=== PATIENT | male | born 1945 | race Caucasian/White ===

== ENCOUNTER 2024-04-22 14:41 | Inpatient (IN) | payer MEDICARE, BC ==
--- NOTE | 2024-04-22 15:04 | ED ---
General Adult HPI - General Chief complaint: Arrhythmia/Palpitations Stated complaint: abn labs Time Seen by Provider: 04/22/24 14:45 Source: patient, RN notes reviewed, old records reviewed Mode of arrival: EMS Limitations: no limitations - History of Present Illness Initial comments: This is a 79-year-old male who presents to the emergency department stating that he was at his doctor's office and they told that the EKG that he did showed him to be having a heart attack so he came to the emergency department. Patient states he has no chest pain palpitations difficulty breathing shortness of breath. According to EMS his heart rate will get up as fast as 170. Patient has a history of atrial fibrillation and is on Eliquis. Patient denies any back pain. Patient has any fever chills or cough. Patient states currently has no symptoms whatsoever. Patient denies any abdominal pain patient has any nausea vomiting or diarrhea. - Related Data Home Medications Medication Instructions Recorded Confirmed Apixaban [Eliquis] 5 mg PO BID 04/22/24 04/22/24 Aspirin EC [Ecotrin Low Dose] 81 mg PO DAILY 04/22/24 04/22/24 Carboxymethylcellulose Sodium 1 drop BOTH EYES DAILY 04/22/24 04/22/24 [Refresh Tears] Famotidine [Pepcid] 40 mg PO DAILY 04/22/24 04/22/24 Metoprolol Tartrate [Lopressor] 25 mg PO DAILY PRN 04/22/24 04/22/24 Pantoprazole [Protonix] 40 mg PO DAILY 04/22/24 04/22/24 Pravastatin Sodium [Pravachol] 40 mg PO Q48H 04/22/24 04/22/24 Pregabalin [Lyrica] 150 mg PO BID 04/22/24 04/22/24 Sertraline [Zoloft] 150 mg PO DAILY 04/22/24 04/22/24 buPROPion XL [Wellbutrin XL] 150 mg PO DAILY 04/22/24 04/22/24 Allergies Allergy/AdvReac Type Severity Reaction Status Date / Time No Known Allergies Allergy Verified 04/22/24 15:33 Review of Systems ROS Statement: Those systems with pertinent positive or pertinent negative responses have been documented in the HPI. ROS Other: All systems not noted in ROS Statement are negative. Past Medical History Past Medical History: Atrial Fibrillation, Diabetes Mellitus, Hyperlipidemia Additional Past Medical History / Comment(s): neuropathy, Additional Past Surgical History / Comment(s): left knee, Past Psychological History: PTSD Smoking Status: Current every day smoker Past Alcohol Use History: Heavy, Occasional Past Drug Use History: None Reported General Exam - General Exam Comments Initial Comments: GENERAL: Patient is well-developed and well-nourished. Patient is nontoxic and well- hydrated and is in no acute distress. ENT: Neck is soft and supple. No significant lymphadenopathy is noted. Oropharynx is clear. Moist mucous membranes. Neck has full range of motion without eliciting any pain. EYES: The sclera were anicteric and conjunctiva were pink and moist. Extraocular movements were intact and pupils were equal round and reactive to light. Eyelid s were unremarkable. PULMONARY: Unlabored respirations. Good breath sounds bilaterally. No audible rales rhonchi or wheezing was noted. CARDIOVASCULAR: There is a regular rate and rhythm without any murmurs gallops or rubs. Patient's heart rate currently is in the 90s but occasionally he does jump up to the 130 and 40 range ABDOMEN: Soft and nontender with normal bowel sounds. SKIN: Skin is clear with no lesions or rashes and otherwise unremarkable. NEUROLOGIC: Patient is alert and oriented x3. Cranial nerves II through XII are grossly intact. Motor and sensory are also intact. Normal speech, volume and content. Symmetrical smile. MUSCULOSKELETAL: Normal extremities with adequate strength and full range of motion. There is a cast on the right leg LYMPHATICS: No significant lymphadenopathy is noted PSYCHIATRIC: Normal psychiatric evaluation. Limitations: no limitations Course Vital Signs 04/22/24 04/22/24 04/22/24 14:43 14:55 15:33 Temperature 98.3 F Pulse Rate 168 H 91 Pulse Rate [ 96 Auditor/Quality ] Respiratory 18 18 Rate Blood Pressure 111/88 130/79 O2 Sat by Pulse 97 96 Oximetry 04/22/24 16:40 Temperature Pulse Rate 82 Pulse Rate [ Auditor/Quality ] Respiratory 17 Rate Blood Pressure 128/73 O2 Sat by Pulse 98 Oximetry Medical Decision Making - Medical Decision Making EKG is interpreted by myself. EKG shows atrial fibrillation with rapid ventricular response at a rate of 127 bpm QRS is 94 QT interval is 282 QTc is 357. Patient's EKG shows A-fib at the beginning of the EKG and normal sinus rhythm at the end A repeat EKG was done the EKG was interpreted by myself and shows a normal sinus rhythm at a rate of 83 bpm SC 180 QRS is 85 QT interval 354 QTc is 394. Patient EKG shows no ST segment elevation or depression. Was pt. sent in by a medical professional or institution (ELVIN Pritchett, PRODUCTION SUPPLY EQUIPMENT TENDER, urgent care, hospital, or correction...) When possible be specific @ -Patient was sent in by the primary medical care doctor Did you speak to anyone other than the patient for history (EMS, parent, family, police, friend...)? What history was obtained from this source @ -No Did you review nursing and triage notes (agree or disagree)? Why? @ -I reviewed and agree with nursing and triage notes Were old charts reviewed (outside hosp., previous admission, EMS record, old EKG, old radiological studies, urgent care reports/EKG's, correction records)? Report findings @ -No old charts were reviewed Differential Diagnosis? @ -Differential Palpitations Ventricular arrhythmias, atrial arrhythmias, myocardial infarction, anemia, thyrotoxicosis, electrolyte imbalance, hypokalemia, pulmonary embolism, pulmonary disease, drugs, alcohol, anxiety, stress.... This is not meant to be an all-inclusive list. EKG interpreted by me (3pts min.). @ -As above X-rays interpreted by me (1pt min.). @ -Chest x-ray showed no acute normality CT interpreted by me (1pt min.). @ -CT of the chest shows no pulmonary embolism U/S interpreted by me (1pt. min.). @ -None done What testing was considered but not performed or refused? (CT, X-rays, U/S, labs)? Why? @ -None What meds were considered but not given or refused? Why? @ -None Did you discuss the management of the patient with other professionals (professionals i.e. ELVIN Pritchett, PRODUCTION SUPPLY EQUIPMENT TENDER, lab, RT, psych nurse, child welfare social worker, mechanical shovel operator, teacher, coastal/harbor defense officer, director case)? Give summary @ [facility] Was smoking cessation discussed for >3mins.? @ -No Was critical care preformed (if so, how long)? @ -No Were there social determinants of health that impacted care today? How? (Homelessness, low income, unemployed, alcoholism, drug addiction, transportat ion, low edu. Level, literacy, decrease access to med. care, [facility], rehab)? @ -No Was there de-escalation of care discussed even if they declined (Discuss DNR or withdrawal of care, Hospice)? DNR status @ -No What co-morbidities impacted this encounter? (DM, HTN, Smoking, COPD, CAD, Cancer, CVA, ARF, Chemo, Hep., AIDS, mental health diagnosis, sleep apnea, morbid obesity)? @ -None Was patient admitted / discharged? Hospital course, mention meds given and route, prescriptions, significant lab abnormalities, going to OR and other pertinent info. @ -Patient had A-fib with rapid ventricular response multiple times during the ER visit but most the time he was in sinus rhythm. Patient did not have any chest pain or difficulty breathing while in the emergency department. I spoke with [facility] hospitalist they agreed admit the patient admit the patient wrote admitting orders Undiagnosed new problem with uncertain prognosis? @ -No Drug Therapy requiring intensive monitoring for toxicity (Heparin, Nitro, Insulin, Cardizem)? @ -No Were any procedures done? @ -No Diagnosis/symptom? @ -Atrial fibrillation with rapid ventricular response Acute, or Chronic, or Acute on Chronic? @ -Acute Uncomplicated (without systemic symptoms) or Complicated (systemic symptoms)? @ -complicated Side effects of treatment? @ -No Exacerbation, Progression, or Severe Exacerbation? @ -No Poses a threat to life or bodily function? How? (Chest pain, [place], [place], pneumonia, PE, COPD, DKA, ARF, appy, cholecystitis, CVA, Diverticulitis, Homicidal, Suicidal, threat to staff... and all critical care pts) @ -No - Lab Data Result diagrams: 04/22/24 15:03 04/22/24 15:03 Lab Results 04/22/24 04/22/24 04/22/24 Range/Units 15:03 15:03 15:03 WBC 10.0 (3.8-10.6) k/uL RBC 4.26 L (4.30-5.90) m/uL Hgb 12.4 L (13.0-17.5) gm/dL Hct 37.5 L (39.0-53.0) % MCV 88.2 (80.0-100.0) fL MCH 29.1 (25.0-35.0) pg MCHC 33.0 (31.0-37.0) g/dL RDW 15.4 (11.5-15.5) % Plt Count 329 (150-450) k/uL MPV 8.1 Neutrophils % 68 % Lymphocytes % 18 % Monocytes % 9 % Eosinophils % 2 % Basophils % 1 % Neutrophils # 6.8 (1.3-7.7) k/uL Lymphocytes # 1.8 (1.0-4.8) k/uL Monocytes # 0.9 (0-1.0) k/uL Eosinophils # 0.2 (0-0.7) k/uL Basophils # 0.1 (0-0.2) k/uL PT 10.4 (10.0-12.5) sec INR 0.9 (<1.2) APTT 27.0 (22.0-30.0) sec D-Dimer 1.51 H (<0.60) mg/L FEU Sodium 136 L (137-145) mmol/L Potassium 4.1 (3.5-5.1) mmol/L Chloride 104 (98-107) mmol/L Carbon Dioxide 25 (22-30) mmol/L Anion Gap 7 mmol/L BUN 11 (9-20) mg/dL Creatinine 0.82 (0.66-1.25) mg/dL Est GFR (CKD-EPI)AfAm >90 (>60 ml/min/1.73 sqM) Est GFR (CKD-EPI)NonAf 84 (>60 ml/min/1.73 sqM) Glucose 121 H (74-99) mg/dL Calcium 8.9 (8.4-10.2) mg/dL Magnesium 2.1 (1.6-2.3) mg/dL Total Bilirubin 0.3 (0.2-1.3) mg/dL AST 23 (17-59) U/L ALT 20 (4-49) U/L Alkaline Phosphatase 140 H (38-126) U/L Troponin I (0.000-0.034) ng/mL Total Protein 6.2 L (6.3-8.2) g/dL Albumin 3.2 L (3.5-5.0) g/dL 04/22/24 Range/Units 15:03 WBC (3.8-10.6) k/uL RBC (4.30-5.90) m/uL Hgb (13.0-17.5) gm/dL Hct (39.0-53.0) % MCV (80.0-100.0) fL MCH (25.0-35.0) pg MCHC (31.0-37.0) g/dL RDW (11.5-15.5) % Plt Count (150-450) k/uL MPV Neutrophils % % Lymphocytes % % Monocytes % % Eosinophils % % Basophils % % Neutrophils # (1.3-7.7) k/uL Lymphocytes # (1.0-4.8) k/uL Monocytes # (0-1.0) k/uL Eosinophils # (0-0.7) k/uL Basophils # (0-0.2) k/uL PT (10.0-12.5) sec INR (<1.2) APTT (22.0-30.0) sec D-Dimer (<0.60) mg/L FEU Sodium (137-145) mmol/L Potassium (3.5-5.1) mmol/L Chloride (98-107) mmol/L Carbon Dioxide (22-30) mmol/L Anion Gap mmol/L BUN (9-20) mg/dL Creatinine (0.66-1.25) mg/dL Est GFR (CKD-EPI)AfAm (>60 ml/min/1.73 sqM) Est GFR (CKD-EPI)NonAf (>60 ml/min/1.73 sqM) Glucose (74-99) mg/dL Calcium (8.4-10.2) mg/dL Magnesium (1.6-2.3) mg/dL Total Bilirubin (0.2-1.3) mg/dL AST (17-59) U/L ALT (4-49) U/L Alkaline Phosphatase (38-126) U/L Troponin I <0.012 (0.000-0.034) ng/mL Total Protein (6.3-8.2) g/dL Albumin (3.5-5.0) g/dL Disposition Clinical Impression: Atrial fibrillation with rapid ventricular response Disposition: ADMITTED IP TO THIS HOSP Referrals: Ha Grimaldo MD [Primary Care Provider] - 1-2 days Time of Disposition: 18:00
[2024-04-22 15:30] LABS: INR 0.9 (<1.2); Prothrombin Time 10.4 sec (10.0-12.5)
--- NOTE | 2024-04-22 15:40 | XR ---
EXAMINATION TYPE: XR chest 2V DATE OF EXAM: 04/22/2024 3:31 PM CLINICAL INDICATION: Male, 79 years old with history of dysrhythmia; COMPARISON: None TECHNIQUE: XR chest 2V Frontal view of the chest. FINDINGS: Lungs/Pleura: There is no evidence of pleural effusion, focal consolidation, or pneumothorax. Pulmonary vascularity: Pulmonary vascular congestion. Heart/mediastinum: Cardiomediastinal silhouette is enlarged. Atherosclerotic calcifications are seen in the aorta. Musculoskeletal: No acute osseous pathology. Other findings: None Lines/Tubes: IMPRESSION: Cardiomegaly and mild pulmonary vascular congestion. Correlate with BNP for congestive heart failure.
[2024-04-22 15:46] LABS: ALT 20 U/L (4-49); AST 23 U/L (17-59); African American GFR (CKD) >90 (>60 ml/min/1.73 sqM); Albumin 3.2 g/dL (3.5-5.0); Alkaline Phosphatase 140 U/L (38-126); Anion Gap 7 mmol/L; Blood Urea Nitrogen 11 mg/dL (9-20); Calcium 8.9 mg/dL (8.4-10.2); Carbon Dioxide 25 mmol/L (22-30); Chloride 104 mmol/L (98-107); Glucose 121 mg/dL (74-99); Magnesium 2.1 mg/dL (1.6-2.3); Non-African American GFR(CKD) 84 (>60 ml/min/1.73 sqM); Potassium 4.1 mmol/L (3.5-5.1); Sodium 136 mmol/L (137-145); Total Bilirubin 0.3 mg/dL (0.2-1.3); Total Protein 6.2 g/dL (6.3-8.2)
[2024-04-22 15:47] LABS: Basophils # (A) 0.1 k/uL (0-0.2); Basophils % (A) 1 %; Eosinophils # (A) 0.2 k/uL (0-0.7); Eosinophils % (A) 2 %; HCT 37.5 % (39.0-53.0); HGB 12.4 gm/dL (13.0-17.5); Lymphocytes # (A) 1.8 k/uL (1.0-4.8); Lymphocytes % (A) 18 %; MCH 29.1 pg (25.0-35.0); MCV 88.2 fL (80.0-100.0); Mean Platelet Volume 8.1; Monocytes # (A) 0.9 k/uL (0-1.0); Monocytes % (A) 9 %; Neutrophils # (A) 6.8 k/uL (1.3-7.7); Neutrophils % (A) 68 %; Platelet Count 329 k/uL (150-450); RBC 4.26 m/uL (4.30-5.90); RDW 15.4 % (11.5-15.5)
--- NOTE | 2024-04-22 17:04 | CT ---
EXAMINATION TYPE: CT chest angio for PE CT DLP: 522.1 mGycm, Automated exposure control for dose reduction was used. DATE OF EXAM: 04/22/2024 4:40 PM COMPARISON: Chest radiograph from same day. . CLINICAL INDICATION: Male, 79 years old with history of Tachycardia; Tachycardia. R/O PE. TECHNIQUE/CONTRAST: CTA scan of the thorax is performed with IV Contrast, patient injected with 100 ml mL of Isovue 370, MIP images are created and reviewed these are created on a separate workstation.. FINDINGS: Pulmonary Artery: There is no evidence for a filling defect within the pulmonary vasculature to sugge st acute pulmonary embolism. The pulmonary artery is of normal size. Lungs/Pleura: No evidence of focal consolidation, pleural effusion or pneumothorax. Airway: Large airways are patent. Heart: Heart is within normal limits for size. Atherosclerosis of the arterial vasculature. Vasculature: No evidence of aortic aneurysm. Mediastinum: No gross evidence of adenopathy. Musculoskeletal: No acute osseous abnormalities Soft Tissues/lymph nodes: Unremarkable. Lower neck: No significant findings. Upper Abdomen: Left renal simple appearing cyst. Simple appearing liver cyst. IMPRESSION: 1. No evidence of pulmonary embolism. 2. Compression deformity/cortical disruption of the anterior aspect of T8 correlate with back pain fu rther workup for T8 vertebral body fracture recommended. 3. Aortic valve and coronary artery calcifications.
[2024-04-22] MEDS ORDERED: NITROGLYCERIN SL TABS 0.4 MG TAB SUBLINGUAL PRN (18:00)
[2024-04-22] MEDS ORDERED: METOPROLOL TARTRATE 25 MG TAB PO PRN (18:03)
[2024-04-22] MEDS: PREGABALIN 75 MG CAP PO SCH (21:17)
[2024-04-22] MEDS: APIXABAN 5 MG TAB PO SCH (21:17)
[2024-04-23] MEDS: PANTOPRAZOLE 40 MG TABLET PO SCH (05:47)
[2024-04-23 08:51] LABS: Chol/HDL Ratio 4.33 Ratio; LDL Cholesterol,Calculated 94.6 mg/dL (0.0-131.0)
[2024-04-23] MEDS ORDERED: ASPIRIN 325 MG TAB PO SCH (09:00)
--- NOTE | 2024-04-23 09:35 | P.CRDCN ---
History of Present Illness History of present illness: HISTORY OF PRESENT ILLNESS: This is a 79-year-old male with a past medical history significant for paroxysmal atrial fibrillation, hyperlipidemia, nicotine dependence, and GERD. Patient follows at the [facility]. We have been asked to see the patient in consultation for atrial fibrillation. Patient examined at the bedside. Patient was at a doctor's appointment yesterday when an EKG was completed revealing tachycardia. The patient was directed to come to the emergency room. The patient does report having some palpitations. He denies any chest pain or pressure. He denies any shortness of breath. The patient does have a history of atrial fibrillation. His EKG on admission appears to be atrial tachycardia. He has since converted to sinus mechanism and is maintaining sinus mechanism this morning. The patient is prescribed metoprolol but apparently he is only taking this on an as-needed basis. DIAGNOSTICS: - EKG reveals atrial tachycardia versus atrial fibrillation. Repeat EKG reveals sinus mechanism. - Chest xray cardiomegaly and mild pulmonary vascular congestion - Laboratory data: WBC 10.0. Hemoglobin 12.4. Platelet count 329. Sodium 136. Potassium 4.1. BUN 11. Creatinine 0.82. Magnesium 2.1. Troponin negative x 3. - Current home cardiac medications include Eliquis 5 mg twice a day, aspirin 81 mg daily, metoprolol tartrate 25 mg daily as needed, and pravastatin 40 mg every 48 hours REVIEW OF SYSTEMS: At the time of my exam: CONSTITUTIONAL: Denies fever or chills. HEENT: Denies blurred vision, vision changes, or eye pain. Denies hemoptysis CARDIOVASCULAR: Denies chest pain. Denies orthopnea. Denies PND. Denies palpitations RESPIRATORY: Denies shortness of breath. GASTROINTESTINAL: Denies abdominal pain. Denies nausea or vomiting. HEMATOLOGIC: Denies bleeding disorders. GENITOURINARY: Denies any blood in urine. SKIN: Denies pruitis. Denies rash. PHYSICAL EXAM: VITAL SIGNS: Reviewed. GENERAL: Well-developed in no acute distress. HEENT: Head is normocephalic. Pupils are equal, round. Sclerae anicteric. Mucous membranes of the mouth are moist. Neck supple. No JVD or thyromegaly LUNGS: Respirations even and unlabored. Lungs essentially clear to auscultation bilaterally. HEART: Regular rate and rhythm. S1 and S2 heard. ABDOMEN: Soft. Nondistended. Nontender. EXTREMITIES: Normal range of motion. No clubbing or cyanosis. Peripheral pu lses intact. No lower extremity edema NEUROLOGIC: Awake and alert. Oriented x 3. ASSESSMENT: Paroxysmal atrial fibrillation with RVR Atrial tachycardia Hyperlipidemia Nicotine dependence GERD PLAN: Obtain 2D echo to assess cardiac structure and function Patient instructed to take his metoprolol on a daily basis instead of PRN Resume home cardiac medications Patient may be discharged home today pending echo results and follow-up with his primary physician at the [facility] Nurse practitioner note has been reviewed by physician. Signing provider agrees with the documented findings, assessment, and plan of care documented by DIAGNOSTICS SALES DEVELOPER as a scribe. Past Medical History Past Medical History: Atrial Fibrillation, Diabetes Mellitus, Hyperlipidemia Additional Past Medical History / Comment(s): neuropathy, History of Any Multi-Drug Resistant Organisms: None Reported Additional Past Surgical History / Comment(s): left knee, ears Past Anesthesia/Blood Transfusion Reactions: No Reported Reaction Past Psychological History: PTSD Smoking Status: Current every day smoker Past Alcohol Use History: Heavy, Occasional Additional Past Alcohol Use History / Comment(s): 3 cigars a day, 4-5 beers and 4-5 shots every other day Past Drug Use History: None Reported Medications and Allergies Home Medications Medication Instructions Recorded Confirmed Type Apixaban [Eliquis] 5 mg PO BID 04/22/24 04/22/24 History Aspirin EC [Ecotrin Low Dose] 81 mg PO DAILY 04/22/24 04/22/24 History Carboxymethylcellulose Sodium 1 drop BOTH EYES DAILY 04/22/24 04/22/24 History [Refresh Tears] Famotidine [Pepcid] 40 mg PO DAILY 04/22/24 04/22/24 History Metoprolol Tartrate [Lopressor] 25 mg PO DAILY PRN 04/22/24 04/22/24 History Pantoprazole [Protonix] 40 mg PO DAILY 04/22/24 04/22/24 History Pravastatin Sodium [Pravachol] 40 mg PO Q48H 04/22/24 04/22/24 History Pregabalin [Lyrica] 150 mg PO BID 04/22/24 04/22/24 History Sertraline [Zoloft] 150 mg PO DAILY 04/22/24 04/22/24 History buPROPion XL [Wellbutrin XL] 150 mg PO DAILY 04/22/24 04/22/24 History Allergies Allergy/AdvReac Type Severity Reaction Status Date / Time No Known Allergies Allergy Verified 04/22/24 15:33 Physical Exam Vitals: Vital Signs Temp Pulse Pulse Resp BP BP Pulse Ox 04/23/24 02:00 98.1 F 66 18 116/74 95 04/23/24 00:32 69 04/22/24 22:50 97.7 F 71 16 114/56 93 L 04/22/24 22:44 97.7 F 69 16 114/56 94 L 04/22/24 20:00 97.9 F 69 18 128/71 95 04/22/24 19:46 97.7 F 73 14 119/58 96 04/22/24 18:05 69 18 112/61 96 04/22/24 16:40 82 17 128/73 98 04/22/24 15:33 91 18 130/79 96 04/22/24 14:55 96 04/22/24 14:43 98.3 F 168 H 18 111/88 97 Intake and Output 04/22/24 04/23/24 04/23/24 22:59 06:59 14:59 Intake Total 0 Output Total 400 Balance -400 0 Intake: Oral 0 Output: Urine 400 Other: # Voids 1 1 Weight 99.79 kg Results 04/22/24 15:03 04/22/24 15:03 Cardiac Enzymes 04/22/24 04/22/24 04/22/24 Range/Units 15:03 15:03 18:47 AST 23 (17-59) U/L Troponin I <0.012 <0.012 (0.000-0.034) ng/mL 04/22/24 Range/Units 21:38 AST (17-59) U/L Troponin I <0.012 (0.000-0.034) ng/mL Coagulation 04/22/24 Range/Units 15:03 PT 10.4 (10.0-12.5) sec APTT 27.0 (22.0-30.0) sec Lipids 04/22/24 Range/Units 15:03 Triglycerides 169.00 H (0.00-149.00) mg/dL Cholesterol 167.00 (0.00-200.00) mg/dL HDL Cholesterol 38.60 L (40.00-60.00) mg/dL Cholesterol/HDL Ratio 4.33 Ratio CBC 04/22/24 Range/Units 15:03 WBC 10.0 (3.8-10.6) k/uL RBC 4.26 L (4.30-5.90) m/uL Hgb 12.4 L (13.0-17.5) gm/dL Hct 37.5 L (39.0-53.0) % Plt Count 329 (150-450) k/uL Comprehensive Metabolic Panel 04/22/24 Range/Units 15:03 Sodium 136 L (137-145) mmol/L Potassium 4.1 (3.5-5.1) mmol/L Chloride 104 (98-107) mmol/L Carbon Dioxide 25 (22-30) mmol/L BUN 11 (9-20) mg/dL Creatinine 0.82 (0.66-1.25) mg/dL Glucose 121 H (74-99) mg/dL Calcium 8.9 (8.4-10.2) mg/dL AST 23 (17-59) U/L ALT 20 (4-49) U/L Alkaline Phosphatase 140 H (38-126) U/L Total Protein 6.2 L (6.3-8.2) g/dL Albumin 3.2 L (3.5-5.0) g/dL Current Medications Generic Name Dose Route Start Last Admin Trade Name Freq PRN Reason Stop Dose Admin Apixaban 5 mg 04/22/24 21:00 04/22/24 21:17 Apixaban 5 Mg Tab PO 5 mg BID [facility] Administration Protocol Artificial Tears 1 drops 04/23/24 09:00 Artificial Tears-Hypromellose Drops 15 Ml Btl BOTH EYES DAILY [facility] Aspirin 81 mg 04/23/24 09:00 Aspirin 81 Mg PO DAILY [facility] Bupropion HCl 150 mg 04/23/24 09:00 Bupropion Xl 150 Mg Tab.Er.24h PO DAILY [facility] Famotidine 40 mg 04/23/24 09:00 Famotidine 20 Mg Tab PO DAILY [facility] Metoprolol Succinate 25 mg 04/23/24 09:00 Metoprolol Succinate (Er) 25 Mg Tab.Er.24h PO DAILY [facility] Nitroglycerin 0.4 mg 04/22/24 18:00 Nitroglycerin Sl Tabs 0.4 Mg Tab SUBLINGUAL Q5M PRN Chest Pain Pantoprazole Sodium 40 mg 04/23/24 07:30 04/23/24 05:47 Pantoprazole 40 Mg Tablet PO Not Given AC-BRKFST [facility] Pravastatin Sodium 40 mg 04/23/24 09:00 Pravastatin Sodium 40 Mg Tab PO Q48H [facility] Pregabalin 150 mg 04/22/24 21:00 04/22/24 21:17 Pregabalin 75 Mg Cap PO 150 mg BID [facility] Administration Sertraline HCl 150 mg 04/23/24 09:00 Sertraline 50 Mg Tab PO DAILY [facility] Intake and Output 04/22/24 04/23/24 04/23/24 22:59 06:59 14:59 Intake Total 0 Output Total 400 Balance -400 0 Intake: Oral 0 Output: Urine 400 Other: # Voids 1 1 Weight 99.79 kg 04/22/24 15:03 04/22/24 15:03
[2024-04-23] MEDS: SERTRALINE 50 MG TAB PO SCH (10:25)
[2024-04-23] MEDS: ASPIRIN 81 MG PO SCH (10:25)
[2024-04-23] MEDS: buPROPion XL 150 MG TAB.ER.24H PO SCH (10:26)
[2024-04-23] MEDS: FAMOTIDINE 20 MG TAB PO SCH (10:26)
[2024-04-23] MEDS: METOPROLOL SUCCINATE (ER) 25 MG TAB.ER.24H PO SCH (10:26)
[2024-04-23] MEDS: ARTIFICIAL TEARS-HYPROMELLOSE DROPS 15 ML BTL BOTH EYES SCH (10:38)
[2024-04-23] MEDS: PRAVASTATIN SODIUM 40 MG TAB PO SCH (10:38)
--- NOTE | 2024-04-23 12:11 | P.HPIM ---
History of Present Illness H&P Date: 04/23/24 Patient is a 79-year-old male with a past medical history significant for paroxysmal atrial fibrillation maintained on Eliquis, hyperlipidemia, and GERD who presented to the emergency department after the [facility] sent him here for EKG changes showing [place]. He endorsed palpitations at the time. He had no complaints of chest pain, shortness of breath, abdominal pain, diaphoresis, fever, chills, nausea, vomiting at the time. He continues to deny chest pain, shortness of breath, nausea, vomiting, palpitations. Initial EKG at [facility] showed atrial fibrillation with rapid ventricular rate versus atrial tachycardia. Subsequent EKG showed normal sinus rhythm. Chest x-ray showed pulmonary vascular congestion and cardiomegaly. CT angio showed no evidence of pulmonary embolism. Troponins x 3 were negative. D-dimer 1.51. Afebrile, normotensive, tachycardicsince resolved. ED documentation reviewed. Review of systems: Pertinent positives and negatives as discussed in HPI, a complete review of systems was performed and all other systems are negative. Social history: Tobacco: current every day Alcohol: current every day Recreational drugs: denies Travel: denies Occupation: retired Physical examination: Vital signs reviewed General: No acute distress Head: Atraumatic, normocephalic, symmetric Eyes: EOMI, no lid lag, anicteric sclera, pupils equal round reactive to light ENT: Nose and ears atraumatic Neck: No cervical lymphadenopathy, trachea midline, supple Mouth: Mucus membranes moist Cardiovascular: S1S2 present, regular rate and rhythm, no murmurs/rubs/gallops Lungs: CTA bilateral, no rhonchi, no rales, no accessory muscle use Abdominal: Soft, nontender to palpation, no guarding Ext: Right lower leg cast present status post fracture from intoxicated fall, no gross muscle atrophy, no edema Neuro: CN II-XI grossly intact, no gross focal neuro deficits Psych: Alert, oriented, appropriate affect and mood Assessment/Plan: - Paroxysmal atrial fibrillation with rapid ventricular rate - Atrial tachycardia Now in normal sinus rhythm Continue Eliquis 2D echo pending Metoprolol daily instead of PRN per cardiology - Hyperlipidemia Continue Pravachol - Neuropathy Continue Lyrica - Depression Continue Zoloft Continue Wellbutrin DVT prophylaxis: Eliquis The patient is admitted with an anticipated less than 2 midnight stay for evaluation of A-fib. Discussed with: Patient Anticipated discharge place: Home Dr. Tera MD I have performed a history and physical examination and medical decision making of this patient, discussed the same with the the resident, and agree with the assessment and plan as written. I performed brief physical exam. Past Medical History Past Medical History: Atrial Fibrillation, Diabetes Mellitus, Hyperlipidemia Additional Past Medical History / Comment(s): neuropathy, History of Any Multi-Drug Resistant Organisms: None Reported Additional Past Surgical History / Comment(s): left knee, ears Past Anesthesia/Blood Transfusion Reactions: No Reported Reaction Past Psychological History: PTSD Smoking Status: Current every day smoker Past Alcohol Use History: Heavy, Occasional Additional Past Alcohol Use History / Comment(s): 3 cigars a day, 4-5 beers and 4-5 shots every other day Past Drug Use History: None Reported Medications and Allergies Home Medications Medication Instructions Recorded Confirmed Type Apixaban [Eliquis] 5 mg PO BID 04/22/24 04/22/24 History Carboxymethylcellulose Sodium 1 drop BOTH EYES DAILY 04/22/24 04/22/24 History [Refresh Tears] Famotidine [Pepcid] 40 mg PO DAILY 04/22/24 04/22/24 History Pantoprazole [Protonix] 40 mg PO DAILY 04/22/24 04/22/24 History Pravastatin Sodium [Pravachol] 40 mg PO Q48H 04/22/24 04/22/24 History Pregabalin [Lyrica] 150 mg PO BID 04/22/24 04/22/24 History Sertraline [Zoloft] 150 mg PO DAILY 04/22/24 04/22/24 History buPROPion XL [Wellbutrin XL] 150 mg PO DAILY 04/22/24 04/22/24 History Metoprolol Succinate (ER) [Toprol 25 mg PO DAILY #30 tab 04/23/24 Rx XL] Allergies Allergy/AdvReac Type Severity Reaction Status Date / Time No Known Allergies Allergy Verified 04/22/24 15:33 Physical Exam Vitals: Vital Signs Temp Pulse Pulse Resp BP BP Pulse Ox 04/23/24 02:00 98.1 F 66 18 116/74 95 04/23/24 00:32 69 04/22/24 22:50 97.7 F 71 16 114/56 93 L 04/22/24 22:44 97.7 F 69 16 114/56 94 L 04/22/24 20:00 97.9 F 69 18 128/71 95 04/22/24 19:46 97.7 F 73 14 119/58 96 04/22/24 18:05 69 18 112/61 96 04/22/24 16:40 82 17 128/73 98 04/22/24 15:33 91 18 130/79 96 04/22/24 14:55 96 04/22/24 14:43 98.3 F 168 H 18 111/88 97 Intake and Output 04/22/24 04/23/24 04/23/24 22:59 06:59 14:59 Intake Total 0 Output Total 400 Balance -400 0 Intake: Oral 0 Output: Urine 400 Other: # Voids 1 1 Weight 99.79 kg Results CBC & Chem 7: 04/22/24 15:03 04/22/24 15:03 Labs: Abnormal Lab Results - Last 24 Hours (Table) 04/22/24 04/22/24 04/22/24 Range/Units 15:03 15:03 15:03 RBC 4.26 L (4.30-5.90) m/uL Hgb 12.4 L (13.0-17.5) gm/dL Hct 37.5 L (39.0-53.0) % D-Dimer 1.51 H (<0.60) mg/L FEU Sodium 136 L (137-145) mmol/L Glucose 121 H (74-99) mg/dL Alkaline Phosphatase 140 H (38-126) U/L Total Protein 6.2 L (6.3-8.2) g/dL Albumin 3.2 L (3.5-5.0) g/dL Thrombosis Risk Factor Assmnt - Choose All That Apply Any of the Below Risk Factors Present?: Yes Each Factor Represents 1 point: Obesity (BMI >25) Other Risk Factors: Yes Each Risk Factor Represents 3 Points: Age 75 years or older Other congenital or acquired thrombophilia - If yes, enter type in comment: No Thrombosis Risk Factor Assessment Total Risk Factor Score: 4 Thrombosis Risk Factor Assessment Level: Moderate Risk
[2024-04-23] MEDS: MELATONIN 5 MG TABLET PO PRN (22:18)
[2024-04-24 03:19] VITALS: RESP 16; TEMP 97.6
[2024-04-24 07:38] VITALS: BP 146/66; PULSE 60
--- NOTE | 2024-04-24 11:36 | P.DS ---
Providers Date of admission: 04/22/24 18:04 Attending physician: Sandra Grimaldo Consults: 04/22/24 18:02 Consult Physician Urgent Consulting Provider: [facility] Consult Reason/Comments: A-fib with rapid ventricular response Do you want consulting provider notified?: Yes Primary care physician: Ha Grimaldo [facility] Course: Patient is a 79-year-old male with a past medical history significant for paroxysmal atrial fibrillation maintained on Eliquis, hyperlipidemia, and GERD who presented to the emergency [facility] showing [place]. He endorsed palpitations at the time. He had no complaints of chest pain, shortness of breath, abdominal pain, diaphoresis, fever, chills, nausea, vomiting at the time. He continues to deny chest pain, shortness of b reath, nausea, vomiting, palpitations. Patient is in sinus rhythm at the time of documentation. Initial EKG at [facility] showed atrial fibrillation with rapid ventricular rate versus atrial tachycardia. Subsequent EKG showed normal sinus rhythm. Chest x-ray showed pulmonary vascular congestion and cardiomegaly. CT angio showed no evidence of pulmonary embolism. Troponins x 3 were negative. D-dimer 1.51. Afebrile, normotensive, tachycardicsince resolved. Cardiology was consulted and recommended an echo and to follow-up outpatient. Patient is medically stable for discharge. Dr. Tera MD I have performed a history and physical examination and medical decision making of this patient, discussed the same with the the resident, and agree with the assessment and plan as written. I performed brief physical exam. Patient Condition at Discharge: Good Plan - Discharge Summary New Discharge Prescriptions: New Metoprolol Succinate (ER) [Toprol XL] 25 mg PO DAILY #30 tab Continue Pantoprazole [Protonix] 40 mg PO DAILY Apixaban [Eliquis] 5 mg PO BID Famotidine [Pepcid] 40 mg PO DAILY Sertraline [Zoloft] 150 mg PO DAILY Carboxymethylcellulose Sodium [Refresh Tears] 1 drop BOTH EYES DAILY Pravastatin Sodium [Pravachol] 40 mg PO Q48H buPROPion XL [Wellbutrin XL] 150 mg PO DAILY Pregabalin [Lyrica] 150 mg PO BID Discontinued Metoprolol Tartrate [Lopressor] 25 mg PO DAILY PRN PRN Reason: Blood Pressure - High Aspirin EC [Ecotrin Low Dose] 81 mg PO DAILY Discharge Medication List Apixaban [Eliquis] 5 mg PO BID 04/22/24 [History] Carboxymethylcellulose Sodium [Refresh Tears] 1 drop BOTH EYES DAILY 04/22/24 [History] Famotidine [Pepcid] 40 mg PO DAILY 04/22/24 [History] Pantoprazole [Protonix] 40 mg PO DAILY 04/22/24 [History] Pravastatin Sodium [Pravachol] 40 mg PO Q48H 04/22/24 [History] Pregabalin [Lyrica] 150 mg PO BID 04/22/24 [History] Sertraline [Zoloft] 150 mg PO DAILY 04/22/24 [History] buPROPion XL [Wellbutrin XL] 150 mg PO DAILY 04/22/24 [History] Metoprolol Succinate (ER) [Toprol XL] 25 mg PO DAILY #30 tab 04/23/24 [Rx] Follow up Appointment(s)/Referral(s): Ha Grimaldo MD [Primary Care Provider] - 1-2 days Ananda Francois MD [STAFF PHYSICIAN] - 1 Week Patient Instructions/Handouts: A-fib (Atrial Fibrillation) (DC), Chest Pain (DC) Activity/Diet/Wound Care/Special Instructions: Follow up with your composition floor layer for Echo, possible Stress test outpatient Discharge Disposition: HOME SELF-CARE
--- NOTE | 2024-04-27 17:58 | CA ---
Transthoracic Echo Report Name: Aaron Em Age: 79 Gender: M : 1945 Exam Date: 04/24/2024 07:08 Exam Location: [place] [facility] Ht (in): 70 Wt (lb): 220 Ordering Physician: Ananda Francois MD ([id number]) Attending/Referring Phys: Priscila GARBER [employer]inter Helper Teena Guillory RDCS Procedure CPT: Indications: Chest Pain Cardiac Hx: Technical Quality: Fair Contrast 1: Total Dose (mL): Contrast 2: Total Dose (mL): MEASUREMENTS (Male / Female) Normal Values 2D ECHO LV Diastolic Diameter PLAX 4.5 cm 4.2 - 5.9 / 3.9 - 5.3 cm LV Systolic Diameter PLAX 2.6 cm IVS Diastolic Thickness 1.2 cm 0.6 - 1.0 / 0.6 - 0.9 cm LVPW Diastolic Thickness 1.2 cm 0.6 - 1.0 / 0.6 - 0.9 cm LV Relative Wall Thickness 0.5 RV Internal Dim ED PLAX 2.6 cm LVOT Diameter 2.0 cm LA Systolic Diameter LX 4.4 cm 3.0 - 4.0 / 2.7 - 3.8 cm LV Diastolic Volume MOD BP 50.2 cm??? 67 - 155 / 56 - 104 cm??? LV Systolic Volume MOD BP 21.4 cm??? 22 - 58 / 19 - 49 cm??? LV Ejection Fraction MOD BP 57.4 % >= 55 % LV Cardiac Index MOD BP 935.6 cm???/min???m??? LV Diastolic Volume MOD 4C 50.2 cm??? LV Systolic Volume MOD 4C 22.6 cm??? LV Ejection Fraction MOD 4C 55.0 % LV Cardiac Index MOD 4C 896.8 cm???/min???m??? LV Diastolic Length 4C 7.4 cm LV Systolic Length 4C 6.1 cm LV Diastolic Volume MOD 2C 45.9 cm??? LV Systolic Volume MOD 2C 17.9 cm??? LV Ejection Fraction MOD 2C 60.9 % LV Cardiac Index MOD 2C 907.1 cm???/min???m??? LV Diastolic Length 2C 6.7 cm LV Systolic Length 2C 5.4 cm LA Volume 62.7 cm??? 18 - 58 / 22 - 52 cm??? LA Volume Index 27.9 cm???/m??? 16 - 28 cm???/m??? M-MODE Aortic Root Diameter MM 2.6 cm LA Systolic Diameter MM 3.9 cm LA Ao Ratio MM 1.5 DOPPLER AV Peak Velocity 234.5 cm/s AV Peak Gradient 22.0 mmHg AV Mean Velocity 154.4 cm/s AV Mean Gradient 11.0 mmHg AV Velocity Time Integral 55.2 cm LVOT Peak Velocity 100.6 cm/s LVOT Peak Gradient 4.0 mmHg LVOT Velocity Time Integral 26.7 cm LVOT Stroke Volume 80.7 cm??? LVOT Stroke Volume Index 37.1 ml/m??? LVOT Cardiac Index 2621.2 cm???/min???m??? AV Area Cont Eq vti 1.5 cm??? AV Area Cont Eq pk 1.3 cm??? MV Area PHT 3.8 cm??? Mitral E Point Velocity 111.7 cm/s Mitral A Point Velocity 70.7 cm/s Mitral E to A Ratio 1.6 MV Deceleration Time 200.3 ms TR Peak Velocity 244.2 cm/s TR Peak Gradient 23.8 mmHg Right Ventricular Systolic Press 28.1 mmHg FINDINGS Left Ventricle Left ventricular ejection fraction is estimated at 55-60 %. Mildly increased septal wall thickness. Left ventricular cavity size normal. No obvious regional wall motion abnormalities. Right Ventricle Normal right ventricular size and function. Right ventricular systolic pressure within normal limits. Right Atrium Mild right atrial dilatation. Left Atrium Mildly increased left atrial diameter. Mildly increased left atrial volume. Mildly increased left atrial area. Mitral Valve Structurally normal mitral valve. Mild mitral regurgitation. No mitral stenosis. Mild mitral annular calcification. Aortic Valve Mild aortic stenosis with a peak gradient of 22mmHg and a mean gradient of 11 mmHg. No aortic regurgitation. Tricuspid Valve Structurally normal tricuspid valve. Mild tricuspid regurgitation. No tricuspid stenosis. Pulmonic Valve Structurally normal pulmonic valve. Mild pulmonic regurgitation. No pulmonic stenosis. Pericardium No pericardial or pleural effusion. Aorta Normal size aortic root and proximal ascending aorta. CONCLUSIONS Diagnosis: Chest pain and paroxysmal atrial fibrillation LVH with preserved systolic function Mild left atrial enlargement Mild aortic stenosis Previewed by: Dr. Miguel Angel Nunes MD (Electronically Signed) Final Date: 27 April 2024 17:57
== END 2024-04-24 08:00 | disposition home or self-care (01) | DRG 310 ==
LOC: EC 14:41 → 6NMEDSUR 18:04
PROVIDERS: ADMIT Hospitalist; ATTEND Hospitalist
DX: I48.0 Paroxysmal atrial fibrillation (principal); Z79.01 Long term (current) use of anticoagulants; I35.0 Nonrheumatic aortic (valve) stenosis; E11.42 Type 2 diabetes mellitus with diabetic polyneuropathy; E78.5 Hyperlipidemia, unspecified; F17.210 Nicotine dependence, cigarettes, uncomplicated; F43.10 Post-traumatic stress disorder, unspecified; I47.19 Other supraventricular tachycardia; K21.9 Gastro-esophageal reflux disease without esophagitis; Z79.899 Other long term (current) drug therapy; Z79.82 Long term (current) use of aspirin
CPT/HCPCS: 36415; 71046; 71275; 80053; 80061; 83735; 84484; 85025; 85379; 85610; 85730; 93005; 93306; 99285